=== PATIENT | female | born 1935 | race Caucasian/White ===

== ENCOUNTER 2016-05-02 07:01 | Outpatient (CLI) | payer MEDICARE, BC ==
[2016-05-02 07:58] LABS: Anion Gap 16 mmol/L (10-20); BUN (Urea Nitrogen) 17 mg/dL (9.8-20.1); Bilirubin, Direct 0.3 mg/dL (0.1-0.3); Bilirubin, Total 0.9 mg/dL (0.2-1.2); Calc. Creatinine Clearance 0 mL/min (70-130); Calcium 9.8 mg/dL (7.8-10.44); Carbon Dioxide 26 mmol/L (23-31); Chloride 104 mmol/L (98-107); Estimated GFR-MDRD 68; Glucose 92 mg/dL (83-110); Potassium 4.2 mmol/L (3.5-5.1); Sodium 142 mmol/L (136-145)
[2016-05-02 07:59] LABS: ALT (SGPT) 13 U/L (0-55); AST (SGOT) 19 U/L (5-34); Albumin 4.2 g/dL (3.4-4.8); Alkaline Phosphatase 65 U/L (40-150); Cardiac Risk 2.7 (Less than 4.5); Cholesterol 135 mg/dL (< 200 Desired); HDL Cholesterol 50 mg/dL (>60 Neg Risk); LDL Cholesterol, Calculated 54 mg/dL; Protein, Total 6.7 g/dL (5.8-8.1); Triglycerides 155 mg/dL (Less than 150)
== END 2016-05-02 07:02 ==
LOC: MADLABBHPM 07:01
PROVIDERS: ATTEND Family Medicine
DX: E78.5 Hyperlipidemia, unspecified (principal); I10 Essential (primary) hypertension
CPT/HCPCS: 36415; 80048; 80061; 80076

== ENCOUNTER 2016-08-14 07:29 | Outpatient (CLI) | payer MEDICARE, BC ==
[2016-08-14 10:22] LABS: ALT (SGPT) 11 U/L (0-55); AST (SGOT) 16 U/L (5-34); Albumin 4.1 g/dL (3.4-4.8); Alkaline Phosphatase 69 U/L (40-150); Anion Gap 15 mmol/L (10-20); BUN (Urea Nitrogen) 16 mg/dL (9.8-20.1); Bilirubin, Direct 0.3 mg/dL (0.1-0.3); Bilirubin, Total 0.6 mg/dL (0.2-1.2); Calc. Creatinine Clearance 0 mL/min (70-130); Calcium 9.6 mg/dL (7.8-10.44); Carbon Dioxide 25 mmol/L (23-31); Cardiac Risk 2.9 (Less than 4.5); Chloride 105 mmol/L (98-107); Cholesterol 135 mg/dL (< 200 Desired); Estimated GFR-MDRD 74; Glucose 83 mg/dL (83-110); HDL Cholesterol 46 mg/dL (>60 Neg Risk); LDL Cholesterol, Calculated 65 mg/dL; Potassium 4.6 mmol/L (3.5-5.1); Protein, Total 6.5 g/dL (5.8-8.1); Sodium 140 mmol/L (136-145); Triglycerides 118 mg/dL (Less than 150)
[2016-08-14 10:24] LABS: #Basophils 0.1 thou/uL (0.0-0.2); #Eosinphils 0.7 thou/uL (0.0-0.7); #Lymphocytes 2.9 thou/uL (1.20-3.40); #Monocytes 0.8 thou/uL (0.11-0.59); #Neutrophils 4.9 thou/uL (1.40-6.50); %Basophils 0.8 % (0.0-1.0); %Eosinophils 7.3 % (0.0-10.0); %Lymphocytes 30.7 % (21.0-51.0); %Monocytes 8.3 % (0.0-10.0); %Neutrophils 52.9 % (42.0-75.0); Hemoglobin 13.6 g/dL (12.0-16.0); Mean Corpuscular HGB CONC 33.2 g/dL (32.0-36.0); Mean Corpuscular Hemoglobin 31.4 pg (27.0-31.0); Mean Corpuscular Volume 94.5 fl (81.0-99.0); Mean Platelet Volume 6.4 fL (7.4-10.4); Platelet Count 231 thou/uL (130-400); RBC Distribution Width 12.1 % (11.5-14.5); Red Blood Cell (RBC) Count 4.33 mill/uL (4.20-5.40); White Blood Cell (WBC) Count 9.3 thou/uL (4.8-10.8)
== END 2016-08-14 07:30 ==
LOC: MADLABBHPM 07:29
PROVIDERS: ATTEND Family Medicine
DX: E78.5 Hyperlipidemia, unspecified (principal); E03.9 Hypothyroidism, unspecified; I10 Essential (primary) hypertension
CPT/HCPCS: 80048; 80061; 80076; 84443; 85025

== ENCOUNTER 2016-11-13 07:47 | Outpatient (CLI) | payer MEDICARE, BC ==
[2016-11-13 09:17] LABS: ALT (SGPT) 11 U/L (8-55); AST (SGOT) 16 U/L (5-34); Albumin 4.1 g/dL (3.4-4.8); Alkaline Phosphatase 79 U/L (40-150); Anion Gap 13 mmol/L (10-20); BUN (Urea Nitrogen) 19 mg/dL (9.8-20.1); Bilirubin, Direct 0.2 mg/dL (0.1-0.3); Bilirubin, Total 0.5 mg/dL (0.2-1.2); Calc. Creatinine Clearance 0 mL/min (70-130); Calcium 9.6 mg/dL (7.8-10.44); Carbon Dioxide 27 mmol/L (23-31); Cardiac Risk 3.2 (Less than 4.5); Chloride 103 mmol/L (98-107); Cholesterol 137 mg/dl (< 200 Desired); Estimated GFR-MDRD 68; Glucose 93 mg/dL (83-110); HDL Cholesterol 43 mg/dL (>60 Neg Risk); LDL Cholesterol, Calculated 61 mg/dL; Potassium 4.8 mmol/L (3.5-5.1); Protein, Total 6.8 g/dL (6.0-8.3); Sodium 138 mmol/L (136-145); Triglycerides 163 mg/dL (Less than 150)
== END 2016-11-13 07:48 | disposition home or self-care (01) ==
LOC: MADLABBHPM 07:47
PROVIDERS: ATTEND Family Medicine
DX: E78.5 Hyperlipidemia, unspecified (principal)
CPT/HCPCS: 80048; 80061; 80076

== ENCOUNTER 2017-09-28 07:07 | Outpatient (CLI) | payer MEDICARE, BC ==
[2017-09-28 09:34] LABS: ALT (SGPT) 11 U/L (8-55); AST (SGOT) 15 U/L (5-34); Albumin 4.2 g/dL (3.4-4.8); Alkaline Phosphatase 64 U/L (40-150); Anion Gap 14 mmol/L (10-20); BUN (Urea Nitrogen) 17 mg/dL (9.8-20.1); Bilirubin, Direct 0.3 mg/dL (0.1-0.3); Calc. Creatinine Clearance 0 mL/min (70-130); Calcium 9.6 mg/dL (7.8-10.44); Carbon Dioxide 27 mmol/L (23-31); Cardiac Risk 2.9 (Less than 4.5); Chloride 103 mmol/L (98-107); Cholesterol 148 mg/dl (< 200 Desired); Estimated GFR-MDRD 72; Glucose 93 mg/dL (83-110); HDL Cholesterol 51 mg/dL (>60 Neg Risk); LDL Cholesterol, Calculated 71 mg/dL; Potassium 4.6 mmol/L (3.5-5.1); Protein, Total 6.8 g/dL (6.0-8.3); Sodium 139 mmol/L (136-145); Triglycerides 132 mg/dL (Less than 150)
== END 2017-09-28 07:08 | disposition home or self-care (01) ==
LOC: MADLAB 07:07
PROVIDERS: ATTEND Family Medicine
DX: E78.5 Hyperlipidemia, unspecified (principal); I10 Essential (primary) hypertension
CPT/HCPCS: 36415; 80048; 80061; 80076

== ENCOUNTER 2018-03-03 08:29 | Emergency (ER) | payer MEDICARE, BC ==
[2018-03-03 10:17] LABS: #Basophils 0.1 thou/uL (0.0-0.2); #Eosinphils 0.1 thou/uL (0.0-0.7); #Lymphocytes 2.4 thou/uL (1.20-3.40); #Monocytes 1.1 thou/uL (0.11-0.59); #Neutrophils 7.7 thou/uL (1.40-6.50); %Basophils 0.8 % (0.0-1.0); %Eosinophils 0.6 % (0.0-10.0); %Lymphocytes 20.8 % (21.0-51.0); %Monocytes 9.6 % (0.0-10.0); %Neutrophils 68.3 % (42.0-75.0); Hemoglobin 12.2 g/dL (12.0-16.0); Mean Corpuscular HGB CONC 33.2 g/dL (32.0-36.0); Mean Corpuscular Hemoglobin 31.8 pg (27.0-31.0); Mean Corpuscular Volume 95.7 fL (78.0-98.0); Mean Platelet Volume 7.3 fL (7.4-10.4); Platelet Count 230 thou/uL (130-400); RBC Distribution Width 11.8 % (11.5-14.5); Red Blood Cell (RBC) Count 3.83 mill/uL (4.20-5.40); White Blood Cell (WBC) Count 11.3 thou/uL (4.8-10.8)
[2018-03-03 10:32] LABS: ALT (SGPT) 16 U/L (8-55); AST (SGOT) 19 U/L (5-34); Albumin 3.6 g/dL (3.4-4.8); Alkaline Phosphatase 70 U/L (40-150); Anion Gap 14 mmol/L (10-20); BUN (Urea Nitrogen) 15 mg/dL (9.8-20.1); Bilirubin, Total 1.4 mg/dL (0.2-1.2); Calc. Creatinine Clearance 0 mL/min (70-130); Calcium 9.2 mg/dL (7.8-10.44); Carbon Dioxide 26 mmol/L (23-31); Chloride 98 mmol/L (98-107); Estimated GFR-MDRD 62; Globulin 2.8 g/dL (2.4-3.5); Glucose 98 mg/dL (83-110); Potassium 3.7 mmol/L (3.5-5.1); Protein, Total 6.4 g/dL (6.0-8.3); Sodium 134 mmol/L (136-145)
[2018-03-03 10:33] LABS: CKMB 0.6 ng/mL (0-6.6); Troponin I 0.034 ng/mL (< 0.028)
[2018-03-03 10:36] LABS: Bilirubin Negative (Negative); Blood, Urine Trace (Negative); Clarity Hazy (Clear); Glucose, Urine (Dipstick) Negative (Negative); Leukocyte Small (Negative); Nitrite Negative (Negative); Protein, Urine (Dipstick) 30 mg/dL (Neg-Trace); Specific Gravity, Urine 1.015 (1.005-1.030)
[2018-03-03 10:44] LABS: Bacteria/HPF 4+ HPF (None Seen); RBC/HPF 0-3 HPF (0-3); WBC/HPF 21-50 HPF (0-3)
[2018-03-03] MEDS ORDERED: Sulfameth/Trimethoprim DS 800-160mg TAB ONE (11:42)
--- NOTE | 2018-03-03 11:56 | RAD ---
PA AND LATERAL VIEWS CHEST: HISTORY: Generalized weakness. FINDINGS: There is elevation of the right hemidiaphragm. The heart size is borderline. No focal areas of cons olidation, pneumothoraces, emir pulmonary edema, or pleural effusions are seen. IMPRESSION: No radiographic evidence of acute cardiopulmonary process. POS: [facility]
[2018-03-03] MEDS ORDERED: Potassium Chloride 20 MEQ TAB ONE (14:07)
[2018-03-03] MEDS ORDERED: Furosemide 40 MG/4 ML VIAL ONE (14:07)
[2018-03-03] MEDS ORDERED: Nitroglycerin 2% Ointment 1 INCH/1 GM Packet ONE (14:07)
--- NOTE | 2018-03-03 14:18 | CT ---
CT ANGIO OF CHEST PERFORMED WITH INTRAVENOUS CONTRAST ENHANCEMENT WITH 3D RECONSTRUCTIONS: HISTORY: Elevated D-dimer, dyspnea. FINDINGS: There are fairly small bilateral pleural effusions with bibasilar atelectatic lung changes seen. Adriana nges would suggest some element of pulmonary edema. Slightly accentuated interstitial change. There is no significant mediastinal or hilar lymphadenopathy. Thoracic aorta is normal in caliber. There is good pulmonary artery opacification. There is some motion artifact which does degrade some detail, but I do not see any evidence for pulmonary embolus. Smaller peripheral emboli cannot be def initively excluded due to the respiratory motion. The visualized liver parenchyma shows no focal findings. IMPRESSION: 1. Small bilateral pleural effusions with findings that would suggest some element of edema. 2. No CT evidence for pulmonary embolus. POS: [facility]
== END 2018-03-03 15:01 | disposition short-term general hospital (02) ==
LOC: MADERS 08:29
DX: J90 Pleural effusion, not elsewhere classified (principal); R53.1 Weakness; N39.0 Urinary tract infection, site not specified; R79.89 Other specified abnormal findings of blood chemistry; E03.9 Hypothyroidism, unspecified; E78.5 Hyperlipidemia, unspecified; I10 Essential (primary) hypertension
CPT/HCPCS: 36415; 71046; 71275; 80053; 81003; 81015; 82553; 83880; 84484; 85025; 85379; 93005; 96374; J1940

== ENCOUNTER 2018-09-07 11:11 | Emergency (ER) | payer MEDICARE, BC ==
[2018-09-07] MEDS ORDERED: Bacitracin Zinc 1 Packet ONE (12:11)
== END 2018-09-07 12:15 | disposition home or self-care (01) ==
LOC: MADERS 11:11
DX: S80.812A Abrasion, left lower leg, initial encounter (principal); L03.116 Cellulitis of left lower limb; E03.9 Hypothyroidism, unspecified; E78.5 Hyperlipidemia, unspecified; I10 Essential (primary) hypertension; Z79.899 Other long term (current) drug therapy; Z79.82 Long term (current) use of aspirin; X58.XXXA Exposure to other specified factors, initial encounter
CPT/HCPCS: 99283

== ENCOUNTER 2019-03-03 08:23 | Emergency (ER) | payer MEDICARE, BC ==
[2019-03-03 09:15] LABS: #Basophils 0.1 thou/uL (0.0-0.2); #Eosinphils 0.3 thou/uL (0.0-0.7); #Lymphocytes 2.3 thou/uL (1.20-3.40); #Monocytes 1.1 thou/uL (0.11-0.59); #Neutrophils 6.8 thou/uL (1.40-6.50); %Basophils 1.2 % (0.0-1.0); %Eosinophils 2.7 % (0.0-10.0); %Lymphocytes 21.8 % (21.0-51.0); %Monocytes 10.5 % (0.0-10.0); %Neutrophils 63.8 % (42.0-75.0); Hemoglobin 11.2 g/dL (12.0-16.0); Mean Corpuscular HGB CONC 30.8 g/dL (32.0-36.0); Mean Corpuscular Hemoglobin 29.8 pg (27.0-31.0); Mean Corpuscular Volume 96.8 fL (78.0-98.0); Mean Platelet Volume 6.4 fL (7.4-10.4); Platelet Count 307 thou/uL (130-400); RBC Distribution Width 11.7 % (11.5-14.5); Red Blood Cell (RBC) Count 3.76 mill/uL (4.20-5.40); White Blood Cell (WBC) Count 10.6 thou/uL (4.8-10.8)
[2019-03-03 09:21] LABS: Bilirubin Negative (Negative); Blood, Urine Negative (Negative); Clarity Clear (Clear); Glucose, Urine (Dipstick) Negative (Negative); Leukocyte Negative (Negative); Nitrite Negative (Negative); Protein, Urine (Dipstick) Negative (Neg-Trace); Urobilinogen 0.2 mg/dL (Less than 2)
--- NOTE | 2019-03-03 09:25 | CT ---
CT BRAIN WITHOUT CONTRAST: Date: 03/03/19 HISTORY: Tremors, hypertension, history of CVA. FINDINGS: Comparison made with exam of 03/04/18. No evidence of acute infarct, hemorrhage, midline shift, or abnormal extra-axial fluid collections ar e seen. The ventricular size is stable and the basilar cisterns are patent. Changes of chronic small vessel ischemic disease are present. The bony calvarium is intact. The visualized paranasal sinuses a nd mastoid air cells are well aerated. IMPRESSION: No CT evidence of acute intracranial process. POS: [facility]
[2019-03-03 09:32] LABS: ALT (SGPT) 30 U/L (8-55); AST (SGOT) 27 U/L (5-34); Albumin 3.5 g/dL (3.4-4.8); Alkaline Phosphatase 90 U/L (40-110); Anion Gap 16 mmol/L (10-20); BUN (Urea Nitrogen) 14 mg/dL (9.8-20.1); Bilirubin, Total 1.3 mg/dL (0.2-1.2); CK (CPK) 40 U/L (29-168); Calc. Creatinine Clearance 0 mL/min (70-130); Calcium 9.1 mg/dL (7.8-10.44); Carbon Dioxide 25 mmol/L (23-31); Chloride 100 mmol/L (98-107); Estimated GFR-MDRD 68; Globulin 2.7 g/dL (2.4-3.5); Glucose 102 mg/dL (83-110); Potassium 4.1 mmol/L (3.5-5.1); Protein, Total 6.2 g/dL (6.0-8.3); Sodium 137 mmol/L (136-145)
[2019-03-03] MEDS ORDERED: Lidocaine 1% w/Epinephrine 1:100K 20 ML VIAL ONE (10:10)
== END 2019-03-03 10:03 | disposition home or self-care (01) ==
LOC: MADERS 08:23
DX: R25.1 Tremor, unspecified (principal); I11.0 Hypertensive heart disease with heart failure; I50.9 Heart failure, unspecified; E03.9 Hypothyroidism, unspecified; E78.00 Pure hypercholesterolemia, unspecified; E78.5 Hyperlipidemia, unspecified; Z79.01 Long term (current) use of anticoagulants; Z79.899 Other long term (current) drug therapy; Z79.82 Long term (current) use of aspirin
CPT/HCPCS: 70450; 80053; 81003; 82550; 83605; 84484; 85025; 87040; 93005

== ENCOUNTER 2019-11-26 10:49 | Emergency (ER) | payer MEDICARE, BC ==
[2019-11-26 11:51] LABS: INR-International Normal Ratio 1.3; Prothrombin Time 16.4 sec (12.0-14.7)
--- NOTE | 2019-11-26 12:00 | CT ---
CT Brain WO Con: 11/26/2019 11:30 AM CLINICAL HISTORY: History of fall with head injury. IMAGING TECHNIQUE: Multiple CT images were obtained of the brain without IV contrast. COMPARISON: March 03, 2019 FINDINGS: BRAIN: Evidence of acute infarct: None. Evidence of chronic ischemic change:None. Evidence of intracranial hemorrhage: None. Evidence of midline shift: Third ventricle and septum pellucidum are midline. Ventricles: Normal. No hydrocephalus. SKULL: Intact. VISUALIZED PARANASAL SINUSES: Clear. MASTOID AIR CELLS: Clear. EXTRACRANIAL SOFT TISSUES: There is a curvilinear radiopaque density within the right picture framer spa ce suspicious for small foreign body which is stable to the prior exam. IMPRESSION: No acute intracranial abnormality. Stable wire-like radiopaque density in the right picture framer space suspicious for small foreign body.
--- NOTE | 2019-11-26 12:01 | RAD ---
Chest AP view INDICATION: History of fall COMPARISON: March 05, 2018 FINDINGS: Lungs: The lungs are clear Cardiac silhouette: Stable mild cardiomegaly and dual-lead pacemaker. Pulmonary vasculature: Normal Pleural spaces: No pleural effusion or pneumothorax is demonstrated. Upper abdomen: Cholecystectomy Osseous structures: No acute osseous abnormality. Additional findings: None. IMPRESSION: No acute cardiopulmonary abnormality.
--- NOTE | 2019-11-26 12:07 | RAD ---
XR Tib Fib Rt Leg 2 View History: Fall. Injury Comparison: None. Findings: Mild circumferential soft tissue swelling. No acute displaced fracture or malalignment. 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 Impression: Superficial soft tissue swelling without displaced fracture. To evaluate for the knee art hroplasty, dedicated knee radiographs recommended.
== END 2019-11-26 12:43 | disposition home or self-care (01) ==
LOC: MADERS 10:49
DX: S00.83XA Contusion of other part of head, initial encounter (principal); E03.9 Hypothyroidism, unspecified; E78.5 Hyperlipidemia, unspecified; E78.00 Pure hypercholesterolemia, unspecified; I11.0 Hypertensive heart disease with heart failure; I50.9 Heart failure, unspecified; Z79.899 Other long term (current) drug therapy; Z79.01 Long term (current) use of anticoagulants; Z79.82 Long term (current) use of aspirin; W19.XXXA Unspecified fall, initial encounter
CPT/HCPCS: 36415; 70450; 71045; 82550; 84484; 85610; 85730